=== PATIENT | male | born 1940 | race Caucasian/White ===

== ENCOUNTER 2025-02-08 23:05 | Emergency (ER) | payer MEDICARE ==
[2025-02-09] MEDS ORDERED: Ibuprofen 200 MG TAB ONE (02:10)
== END 2025-02-09 03:20 | disposition home or self-care (01) ==
LOC: ERS 23:05
DX: R60.0 Localized edema (principal); I10 Essential (primary) hypertension; Z55.6 Problems related to health literacy; Z87.891 Personal history of nicotine dependence; Z79.899 Other long term (current) drug therapy
CPT/HCPCS: 93970